=== PATIENT | female | born 1940 | race Two or more races ===

== ENCOUNTER 2021-10-28 19:52 | Emergency (ER) | payer OTHER ==
[~2021-10-28] VITALS: Ht 167.6 cm; Wt 65.8 kg
[2021-10-28 20:09] VITALS: BP 164/84
== END 2021-10-28 21:15 | disposition home or self-care (01) ==
LOC: EDBD 19:52 → ER 19:55
DX: S01.01XA Laceration without foreign body of scalp, initial encounter (principal); W01.0XXA Fall on same level from slipping, tripping and stumbling without subsequent striking against object, initial encounter; Y93.89 Activity, other specified; Y92.89 Other specified places as the place of occurrence of the external cause; Y99.8 Other external cause status
CPT/HCPCS: 70450